=== PATIENT | female | born 1990 | race American Indian/Alaskan Native ===

== ENCOUNTER 2017-09-27 13:36 | Emergency (ER) | payer MEDICAID ==
--- NOTE | 2017-09-27 13:54 | ED PDOC ---
Arrival/HPI - General Time Seen by Provider: 09/27/17 13:53 Historian: Patient - History of Present Illness Narrative History of Present Illness (Text): 09/27/17 14:10 26 year old female, with PMH of P: 0 A: 1 (spont ), who presents to the emergency department complaining of vaginal bleeding since this morning. Patient reports she woke up this morning with vaginal bleeding small clots associated with lower abdominal cramping. Patient reports she tested positive for on urinalysis. Patient denies any fever, nausea, vomiting, diarrhea, dizziness, headache, shortness of breath or other complaints. Last menstrual cycle was on 08/29/2017. Time/Duration: Prior to Arrival Symptom Onset: Sudden Symptom Course: Unchanged Quality: Cramping Context: Home Past Medical History - Provider Review Nursing Documentation Reviewed: Yes Family/Social History - Physician Review Nursing Documentation Reviewed: Yes Family/Social History: No Known Family HX Allergies/Home Meds Allergies/Adverse Reactions: Allergies No Known Allergies Allergy (Verified 09/27/17 14:00) Home Medications: Home Meds Medication Instructions Recorded Confirmed No Known Home Med 09/27/17 09/27/17 Review of Systems - Physician Review All systems were reviewed & negative as marked: Yes - Review of Systems Constitutional: absent: Fevers Respiratory: absent: SOB Gastrointestinal: Abdominal Pain (lower abdomen cramping) Genitourinary Female: Vaginal Bleeding Neurological: absent: Dizziness Physical Exam - Physical Exam Narrative Physical Exam (Text): 09/27/17 Constitutional: No acute distress. Head: Normocephalic. Atraumatic. Eyes: PERRL. ENT: Moist mucous membranes. Neck: Supple. Cardiovascular: Regular rate. Chest: No tenderness. Respiratory: Clear to auscultation bilaterally. GI: (+) lower abdominal tenderness. No rebound or guarding. Nondistended. Back: No CVA tenderness. Musculoskeletal: No tenderness or swelling of extremities. Skin: No rash. Neurologic: Alert, no focal deficit. Vital Signs Reviewed: Yes Vital Signs Temp Pulse Resp BP Pulse Ox 09/27/17 15:54 100 09/27/17 15:50 98.3 F 85 17 127/80 100 09/27/17 14:05 98.2 F 89 18 129/78 100 Appearance: Positive for: Well-Appearing, Non-Toxic, Comfortable Pain Distress: None Mental Status: Positive for: Alert and Oriented X 3 Medical Decision Making ED Course and Treatment: 09/27/17 Impression: 26 year old female with lower abdominal tenderness complaining of lower abdominal cramping and vaginal bleeding since this morning. Plan: -- Labs -- Tylenol -- Urinalysis -- Ultrasound -- Reassess and disposition Progress Notes: FINDINGS: UTERUS: Measures 9.0 x 3.5 x 5.3 cm cm. Normal in size and appearance. No fibroid or other mass lesion seen. ENDOMETRIUM: Measures 5 mm in diameter. There is no evidence of intrauterine . CERVIX: No cervical abnormality identified. RIGHT OVARY: Measures 2.7 x 2.0 x 2.0 cm. No solid mass. Normal flow. LEFT OVARY: Measures 3.0 x 2.0 x 1.6 cm. No solid mass. Normal flow. FREE FLUID: No significant free fluid noted. OTHER FINDINGS: None. IMPRESSION: No evidence of intrauterine . Correlation with HCG levels is recommended. beta hcg negative. Patient not , likely menstrual cramps. - Lab Interpretations Lab Results: 09/27/17 14:25 09/27/17 14:25 Lab Results 09/27/17 14:25: Blood Type Pending, Antibody Screen Pending, BBK History Checked No verified bt 09/27/17 14:25: Beta HCG, Quant < 2.39 09/27/17 14:25: Urine Color Yellow, Urine Appearance Turbid, Urine pH 8.0, Ur Specific [place] 1.020, Urine Protein 100 H, Urine Glucose (UA) Negative, Urine Ketones Negative, Urine Blood Large H, Urine Nitrate Negative, Urine Bilirubin Negative, Urine Urobilinogen 1.0 H, Ur Leukocyte Esterase Trace H, Urine RBC 25 - 30, Urine WBC 5 - 10, Ur Epithelial Cells 4 - 5, Amorphous Sediment Few, Urine Bacteria Many, Coarse Granular Casts Trace H, Urine Other [place] 09/27/17 14:25: Sodium 140, Potassium 4.1, Chloride 104, Carbon Dioxide 25, Anion Gap 15, BUN 10, Creatinine 0.7, Est GFR ( Amer) > 60, Est GFR (Non- Af Amer) > 60, Random Glucose 95, Calcium 9.1, Total Bilirubin 0.4, AST 28, ALT 26, Alkaline Phosphatase 74, Total Protein 7.9, Albumin 4.0, Globulin 3.7, Albumin/Globulin Ratio 1.1 09/27/17 14:25: WBC 9.2, RBC 4.45, Hgb 13.7, Hct 38.9, MCV 87.4, MCH 30.8, MCHC 35.2, RDW 12.6, Plt Count 240, MPV 10.7, Gran % 55.6, Lymph % (Auto) 33.5, [place] % (Auto) 9.2 H, Eos % (Auto) 1.4 L, Baso % (Auto) 0.3, Gran # 5.10, Lymph # ( Auto) 3.1, [place] # (Auto) 0.9 H, Eos # (Auto) 0.1, Baso # (Auto) 0.03 I have reviewed the lab results: Yes - RAD Interpretation Radiology Orders: 09/27/17 14:17 TRANSVAGINAL [US] Stat Mud Boss: Radiologist - Medication Orders Current Medication Orders: Discontinued Medications Acetaminophen (Tylenol 325mg Tab) 650 mg PO STAT STA Stop: 09/27/17 14:19 Last Admin: 09/27/17 14:18 Dose: Ketorolac Tromethamine (Toradol) 30 mg IVP STAT STA Stop: 09/27/17 15:23 Last Admin: 09/27/17 15:32 Dose: 30 mg MAR Pain Assessment Document 09/27/17 15:32 SF (Rec: 09/27/17 15:32 [facility] [id number] Pain Reassessment Is this a pain reassessment? Yes Sleep Is patient sleeping during reassessment? No Presence of Pain Presence of Pain Yes IVP Administration Document 09/27/17 15:32 SF (Rec: 09/27/17 15:32 SF [facility] [place] [id number] Charges for Administration # of IVP Administrations 1 - Scribe Statement The provider has reviewed the documentation as recorded by the Jameson Barrios Provider Scribe Attestation: All medical record entries made by the Scribe were at my direction and personally dictated by me. I have reviewed the chart and agree that the record accurately reflects my personal performance of the history, physical exam, medical decision making, and the department course for this patient. I have also personally directed, reviewed, and agree with the discharge instructions and disposition. Disposition/Present on Arrival - Present on Arrival Any Indicators Present on Arrival: No - Disposition Have Diagnosis and Disposition been Completed?: Yes Diagnosis: Menstrual cramps Disposition: HOME/ ROUTINE Disposition Time: 15:22 Patient Plan: Discharge Condition: STABLE Discharge Instructions (ExitCare): Tests Forms: [facility] (Pashto)
[2017-09-27 14:01] VITALS: BMI 34.9
[2017-09-27 14:45] LABS: BASO # 0.03 K/mm3 (0.0-2.0); BASO % 0.3 % (0.0-3.0); EOS # 0.1 (0.0-0.7); EOS % 1.4 % (1.5-5.0); GRAN # 5.1 (1.4-6.5); GRAN % 55.6 % (50.0-68.0); HEMOGLOBIN 13.7 g/dL (12.0-16.0); LYMPH # 3.1 (1.2-3.4); LYMPH % 33.5 % (22.0-35.0); MEAN CELL VOLUME 87.4 fl (80.0-105.0); MEAN CORPUSCULAR HEMOGLOBIN 30.8 pg (25.0-35.0); MEAN CORPUSCULAR HGB CONC 35.2 g/dl (31.0-37.0); MEAN PLATELET VOLUME 10.7 fl (7.0-11.0); MONO # 0.9 (0.1-0.6); MONO % 9.2 % (1.0-6.0); RBC 4.45 10^6/uL (3.5-6.1); RED CELL DISTRIBUTION WIDTH 12.6 % (11.5-14.5); WHITE BLOOD COUNT 9.2 10^3/ul (4.5-11.0)
[2017-09-27 14:48] LABS: URINE APPEARANCE TURBID (CLEAR); URINE BILIRUBIN NEGATIVE (NEGATIVE); URINE BLOOD LARGE (NEGATIVE); URINE COLOR YELLOW (YELLOW); URINE GLUCOSE (UA) NEGATIVE (NEGATIVE); URINE LEUKOCYTE ESTERASE TRACE Leu/uL (NEGATIVE); URINE PROTEIN 100 mg/dL (<30 mg/dL)
[2017-09-27 14:58] LABS: URINE BACTERIA MANY (NEG); URINE RBC 25 - 30 /hpf (0-2)
[2017-09-27 14:59] LABS: ALT/SGPT 26 U/L (7-56); AST/SGOT 28 U/L (14-36); BLOOD UREA NITROGEN 10 mg/dL (7-21); CALCIUM 9.1 mg/dL (8.4-10.5); GFR AFRICAN-AMERICAN > 60; GFR NON-AFRICAN AMERICAN > 60; URINE COARSE GRANULAR CAST TRACE /hpf (0-2)
[2017-09-27 15:00] LABS: URINE AMORPHOUS SEDIMENT FEW
[2017-09-27 15:16] LABS: ALB/GLOB RATIO 1.1 (1.1-1.8)
[2017-09-27 15:50] VITALS: O2SAT 100
[2017-09-27 15:53] VITALS: BP 127/80; PULSE 85; RESP 17; TEMP 98.3
--- NOTE | 2017-09-27 16:01 | US ---
Date of service: 09/27/2017 HISTORY: vag bleed in , assess cervix COMPARISON: None available. TECHNIQUE: FINDINGS: UTERUS: Measures 9.0 x 3.5 x 5.3 cm cm. Normal in size and appearance. No fibroid or other mass lesion seen. ENDOMETRIUM: Measures 5 mm in diameter. There is no evidence of intrauterine . CERVIX: No cervical abnormality identified. RIGHT OVARY: Measures 2.7 x 2.0 x 2.0 cm. No solid mass. Normal flow. LEFT OVARY: Measures 3.0 x 2.0 x 1.6 cm. No solid mass. Normal flow. FREE FLUID: No significant free fluid noted. OTHER FINDINGS: None. IMPRESSION: No evidence of intrauterine . Correlation with HCG levels is recommended.
== END 2017-09-27 15:53 | disposition home or self-care (01) ==
LOC: ED 13:36
DX: N94.6 Dysmenorrhea, unspecified (principal)
CPT/HCPCS: 76830; 80053; 81001; 84702; 85025; 86850; 86900; 87086; 96374; 99285; J1885